=== PATIENT | female | born 1955 | race Caucasian/White ===

== ENCOUNTER 2018-11-29 18:23 | Emergency (ER) | payer BC, OTHER ==
[~2018-11-29] VITALS: Ht 182.9 cm; Wt 47.6 kg
[2018-11-29 21:49] VITALS: BP 134/79
== END 2018-11-29 21:56 | disposition home or self-care (01) ==
LOC: EDBD 18:23 → ER 18:23
DX: G35 Multiple sclerosis (principal); M79.10 Myalgia, unspecified site; F41.9 Anxiety disorder, unspecified; M19.90 Unspecified osteoarthritis, unspecified site; Z88.6 Allergy status to analgesic agent; Z76.0 Encounter for issue of repeat prescription

== ENCOUNTER 2018-12-17 22:25 | Emergency (ER) | payer OTHER ==
[~2018-12-17] VITALS: Ht 160 cm; Wt 47.6 kg
[2018-12-18 00:25] VITALS: BP 120/61
== END 2018-12-18 00:30 | disposition left against medical advice (07) ==
LOC: EDBD 22:25 → ER 22:31
DX: S00.81XA Abrasion of other part of head, initial encounter (principal); M79.10 Myalgia, unspecified site; R51 Headache; Z53.21 Procedure and treatment not carried out due to patient leaving prior to being seen by health care provider; Y08.89XA Assault by other specified means, initial encounter; Y93.89 Activity, other specified; Y99.8 Other external cause status; Y92.89 Other specified places as the place of occurrence of the external cause
CPT/HCPCS: 70486